=== PATIENT | male | born 1960 | race Caucasian/White ===

== ENCOUNTER 2019-07-12 19:40 | Emergency (ER) | payer MEDICAID ==
[~2019-07-12] VITALS: Ht 170.2 cm; Wt 83.9 kg
[2019-07-12 19:51] VITALS: Ht 170.2 cm; Wt 83.9 kg
[2019-07-12 21:23] LABS: BASOPHIL % 0.2 % (0-2); PLATELET COUNT 322 x10^3mcL (130-400); RED CELL DISTRIBUTION WIDTH 13.4 % (11.5-14.5)
[2019-07-12 21:31] LABS: CALCIUM 8.6 mg/dL (8.5-10.1); CARBON DIOXIDE 12.8 mmol/L (21-32); CHLORIDE SERUM 102 mmol/L (98-107); CREATININE SERUM 1.1 mg/dL (0.7-1.3); GFR1 > 60 mL/min; GLUCOSE SERUM 103 mg/dL (74-106); POTASSIUM SERUM 3.4 mmol/L (3.5-5.1); SODIUM SERUM 136 mmol/L (136-145)
[2019-07-12 21:37] LABS: ALKALINE PHOSPHATASE 111 U/L (46-116); ALT/SGPT 28 U/L (16-63); AST/SGOT 16 U/L (15-37); BILIRUBIN TOTAL 0.8 mg/dL (0.20-1.00); LIPASE 96 IU/L (73-393)
[2019-07-12 21:38] LABS: TOTAL PROTEIN, SERUM 8.7 g/dL (6.4-8.2)
[2019-07-12 22:44] VITALS: BP 108/76
== END 2019-07-12 22:44 | disposition home or self-care (01) ==
LOC: ED 19:40
PROVIDERS: Emergency Medicine
DX: K59.00 Constipation, unspecified (principal); R11.0 Nausea; Z90.49 Acquired absence of other specified parts of digestive tract
CPT/HCPCS: 36415; Q0092; Q0162